=== PATIENT | female | born 1995 | race Two or more races ===

== ENCOUNTER 2017-01-12 13:59 | Emergency (ER) | payer OTHER ==
[~2017-01-12] VITALS: Ht 160 cm; Wt 69.0 kg
[2017-01-12 14:03] VITALS: Ht 160 cm; Wt 69.0 kg
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
[2017-01-12] MEDS ORDERED: ACYC800T57 PO (16:53)
[2017-01-12] MEDS ORDERED: PRED20TA PO (16:53)
[2017-01-12 17:12] VITALS: BP 121/79; PULSE 71; RESP 18; TEMP 98.7
== END 2017-01-12 17:15 | disposition home or self-care (01) ==
LOC: FTE 13:59
DX: G51.0 Bell's palsy (principal)
CPT/HCPCS: 99284